=== PATIENT | male | born 1985 | race Caucasian/White ===

== ENCOUNTER 2017-02-20 16:22 | Emergency (ER) | payer BC, OTHER ==
[~2017-02-20] VITALS: Ht 175.3 cm; Wt 74.8 kg
[2017-02-20 16:23] VITALS: BP 158/100
[2017-02-20] MEDS ORDERED: KEFLEX500 MG PO (17:07)
[2017-02-20] MEDS ORDERED: IBUPROFEN 600600 M1 PO (17:07)
[2017-02-20] MEDS ORDERED: BACTRIM DS TAB1 EACH PO (17:07)
== END 2017-02-20 17:27 | disposition home or self-care (01) ==
LOC: ER 16:22
DX: L03.116 Cellulitis of left lower limb (principal); Z88.5 Allergy status to narcotic agent

== ENCOUNTER → 2017-04-29 | Outpatient (CLI) | payer BC, OTHER ==
[~2017-04-29] MED LIST: BACTRIM DS TAB1 EACH PO; IBUPROFEN 600600 M1 PO; KEFLEX500 MG PO; TRAMADOL 50 MG50 MG PO
== END ==
LOC: HYPER 04-15 10:04
DX: T81.4XXA Infection following a procedure, initial encounter (principal); L03.116 Cellulitis of left lower limb; M70.42 Prepatellar bursitis, left knee; Z87.891 Personal history of nicotine dependence; Z72.89 Other problems related to lifestyle; Y83.8 Other surgical procedures as the cause of abnormal reaction of the patient, or of later complication, without mention of misadventure at the time of the procedure; Y92.89 Other specified places as the place of occurrence of the external cause

== ENCOUNTER 2018-05-05 08:25 | Inpatient (IN) | payer BC, OTHER ==
[~2018-05-05] VITALS: Ht 175.3 cm; Wt 79.8 kg
--- NOTE | ~2018-05-05 | EKG ---
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 : 1985 Requested By: Mark Anthony Morales Order Number: [id number] MD: Antonino Vyas Measurements Intervals [place] Rate: 65 P: 15 AK: 156 QRS: 36 QRSD: 85 T: -1 QT: 365 QTc: 380 Interpretive Statements Sinus rhythm Anteroseptal infarct, old Borderline T abnormalities Compared to ECG 05/05/2018 08:25:36 T-wave abnormality now present Electronically Signed On 05-05-2018 16:58:29 CDT by Antonino Vyas [email or web address] <ELECTRONICALLY SIGNED> By: Antonino Vyas MD, [facility] 05/05/18 1658 1547 1547 Antonino Vyas MD, [facility] /EPI
--- NOTE | ~2018-05-05 | EKG ---
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 : 1985 Requested By: Melissa Manuel Order Number: [id number] MD: Antonino Vyas Measurements Intervals [place] Rate: 68 P: 54 LA: 164 QRS: 11 QRSD: 84 T: 33 QT: 366 QTc: 390 Interpretive Statements Sinus rhythm Atrial premature complex Poor septal R-wave progression Compared to ECG 05/05/2018 08:25:36 Atrial premature complex(es) now present Electronically Signed On 05-05-2018 16:42:51 CDT by Antonino Vyas [email or web address] <ELECTRONICALLY SIGNED> By: Antonino Vyas MD, [facility] 05/05/18 1642 2 2 Antonino Vyas MD, [facility] /EPI
--- NOTE | ~2018-05-05 | EKG ---
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 : 1985 Requested By: Melissa Manuel Order Number: [id number] MD: Antonino Vyas Measurements Intervals [place] Rate: 76 P: 13 SD: 152 QRS: 40 QRSD: 77 T: 11 QT: 335 QTc: 377 Interpretive Statements Sinus rhythm Poor septal R-wave progression Compared to ECG 04/27/2004 01:04:10 Poor septal R-wave progression is now present Electronically Signed On 05-05-2018 8:43:28 CDT by Antonino Vyas [email or web address] <ELECTRONICALLY SIGNED> By: Antonino Vyas MD, [facility] 05/05/18 0843 0825 08 Antonino Vyas MD, [facility] /EPI
--- NOTE | ~2018-05-05 | EKG ---
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 05/06/18 0804 4 4 Antonino Vyas MD, [facility] /EPI
--- NOTE | ~2018-05-05 | 2DMMODE ---
[facility] [address] [place] [address] 2 D/M-MODE ECHOCARDIOGRAM Name: KEVINZACHERY Jing Room #: 170-6 ADM IN .R.#: [id number] Admission: 05/05/18 Attend Phys: Leonel Sauceda Discharge: Date of : 81 Date of Service: 05/05/18 1200 Report #: [id number] THIS REPORT FOR: //name// APPROVED REPORT Study performed: 05/05/2018 11:14:28 EXAM: Comprehensive 2D, Doppler, and color-flow Echocardiogram Patient Location: ER Room #: 6 Status: routine BSA: 1.98 HR: 53 bpm BP: 125/78 mmHg Rhythm: NSR Other Information Study Quality: Good Indications Bradycardia Elevated Troponin Chest Pain Hypertension/HDD 2D Dimensions RVDd: 33.90 mm LVEF(%): 59.67 (>50%) IVSd: 9.89 (7-11mm) LVOT Diam: 20.45 (18-24mm) LVDd: 46.65 mm PWd: 10.34 (7-11mm) Ascending Ao: 24.50 (22-36mm) LVDs: 31.88 (25-40mm) Aortic Root: 29.60 mm IVC: 15.00 mm Hurst's LVEF: 59.67 % Volumes Left Atrial Volume (Systole) Single Plane 4CH: 25.75 mL Single Plane 2CH: 47.29 mL LA ESV Index: 20.00 mL/m2 Aortic Valve AoV Peak Adolfo.: 1.20 m/s AO Peak Gr.: 5.73 mmHg LVOT Max P.91 mmHg LVOT Max V: 1.11 m/s JAN Vmax: 3.04 cm2 [facility] [place] [address] 2 D/M-MODE ECHOCARDIOGRAM Name: BROWNZACHERY Jing Room #: 170-6 ADM IN ..#: [id number] Admission: 05/05/18 Attend Phys: Leonel Sauceda Discharge: Date of : 81 Date of Service: 05/05/18 1200 Report #: [id number] Mitral Valve E/A Ratio: 1.8 MV Decel. Time: 178.99 ms MV E Max Adolfo.: 0.80 m/s MV A Adolfo.: 0.45 m/s MV PHT: 51.91 ms IVRT: 110.73 ms Pulmonary Valve PV Peak Adolfo.: 1.11 m/s PV Peak Gr.: 4.94 mmHg Pulmonary Vein P Vein S: 0.38 m/s P Vein A: 0.24 m/s P Vein D: 0.32 m/s P Vein A Dur.: 106.1 msec P Vein S/D Ratio: 1.19 Tricuspid Valve TR Peak Adolfo.: 1.73 m/s TR Peak Gr.: 11.99 mmHg PA Pressure: 17.00 mmHg Left Ventricle The left ventricle is normal size. There is hypokinesis in the anterior wall. There is hypokinesis in the lateral wall. There is normal left ventricular wall thickness. Left ventricular systolic function is mildly decreased. LVEF is 45%. The left ventricular diastolic function is normal. Right Ventricle The right ventricle is normal size. The right ventricular systolic function is normal. Atria The left atrium size is normal. The right atrium size is normal. Aortic Valve The aortic valve is normal in structure. No aortic regurgitation is present. There is no aortic valvular stenosis. Mitral Valve The mitral valve is normal in structure. Trace mitral regurgitation. No evidence of mitral valve stenosis. Tricuspid Valve The tricuspid valve is normal in structure. There is trace tricuspid [facility] [address] [place] [address] 2 D/M-MODE ECHOCARDIOGRAM Name: ZACHERY BROWN Jing Room #: 170-6 ADM IN .R.#: [id number] Admission: 05/05/18 Attend Phys: Leonel Sauceda Discharge: Date of : 81 Date of Service: 05/05/18 [facility] Report #: [id number] regurgitation. There is no pulmonary hypertension. Pulmonic Valve The pulmonary valve is normal in structure. Trace pulmonic regurgitation. Great Vessels The aortic root is normal in size. IVC is normal in size and collapses >50% with inspiration. Pericardium There is no pericardial effusion. <Conclusion> The left ventricle is normal size. There is hypokinesis in the anterior wall. There is hypokinesis in the lateral wall. LVEF is 45%. The left ventricular diastolic function is normal. The left atrium size is normal. The aortic valve is normal in structure. Trace mitral regurgitation. There is trace tricuspid regurgitation. There is no pulmonary hypertension. The pulmonary valve is normal in structure. The aortic root is normal in size. There is no pericardial effusion. <ELECTRONICALLY SIGNED> By: Mark Anthony Morales MD, [facility]ACC 05/05/18 1200 1200 99 Mark Anthony Morales MD, FACC /INF
--- NOTE | ~2018-05-05 | CATHLAB ---
[facility] [address] [place] [address] INVASIVE PROCEDURE REPORT Name: ZACHERY BROWN Jing Room #: 212-P ADM IN M.R.#: [id number] Admission: 05/05/18 Attend Phys: Leonel Sauceda Discharge: Date of : 81 Date of Service: 05/05/182127 Report #: [id number] THIS REPORT FOR: //name// APPROVED REPORT Study performed: 05/05/2018 11:55:18 Patient Details Patient Status: ED Room #: The patient is a 32 year-old male Event Personnel Mark Anthony Morales Master Rigger, Byron Eastman RN, Santiago Rodriguez RN RN, Jade Sauer Sandifer, David Monitor Procedures Performed Left Heart Cath w/or w/o Coronaries [id number] [facility] Abdominal Aortography [address] w/wo Plasty Single LAD 412819 Indication Chest pain Procedure Narrative The Right Groin^ was infiltrated with 1% Lidocaine subcutaneous anesthesia. A PINNACLE 6FR Sheath #[id number] sheath was inserted into the RFA^. Coronary angiography was performed using coronary diagnostic catheters. The right coronary system was accessed and visualized with a 6FR 3DRC #[id number] catheter. The left coronary system was accessed and visualized with a JL4 catheter. The left ventricle was accessed and visualized with a PIGTAIL catheter. Left ventriculogram was performed in 30 degree projection. An aortogram of the abdominal aorta was performed. Closure device was deployed with a 6 Fr MYNXGRIP 6/7F #[id number]. The patient tolerated the procedure well and there were no complications associated with the procedure. There was no hematoma. Intraoperative Conscious Sedation Sedation start time: 12.19 Case end Time: 13.14 Fentanyl 50 mcg Versed 2 mg Fluoro Time: 9.17 minutes Dose: DAP 8070 cGycm2 1064 mGy Contrast Type and Amount: Omnipaque 250 ml [facility] [place] [address] INVASIVE PROCEDURE REPORT Name: ZACHERY BROWN Jing Room #: 212-P [facility] IN M.R.#: [id number] Admission: 05/05/18 Attend Phys: Leonel Sauceda Discharge: Date of : 81 Date of Service: 05/05/182127 Report #: [id number] Hemodynamics The aortic pressure is 130/76 mmHg with a mean of 94 mmHg. The left ventricular pressure is 135/18 mmHg with a mean of mmHg. The left ventricular end diastolic pressure is 30 mmHg. PCI Technique Lesion Percutaneous coronary intervention was performed on the proximal left anterior descending artery segment. A LAUNCHER 6FR EBU 3.5 #[id number] Guide Catheter was used to engage the ostium. A Luge Wire .014 x 182CM #[id number] Interventional Guidewire was used to cross the lesion. BALLOON DILATION A Balloon catheter Sprinter OTW 2.5 x 15 #[id number] was inserted and inflated up to 8atm for 21seconds. Additional Inflation: 12.00atm for 17seconds. STENT DEPLOYMENT A drug-eluting stent RESOLUTE OTW 3.0 X 18 #[id number] was inserted and inflated up to 15.00atm for 37seconds. Conclusion #1 successful PTCA stent drug-eluting to the proximal LAD eccentric long 90% lesion with placement of a 30 by 18 resolute drug-eluting stent to 3.3 mm in size 30-40% irregularity distal to the stent well-preserved vessel to the apex COLEEN-3 kassi #2 left main short large free of disease giving rise to LAD circumflex #3 circumflex OM is dominant vessel mildly diseased #4 small nondominant right mildly disease #5 normal left ventricular size with anterior apical lateral wall hypokinesis EF 45% (expect this to improved appears stunned) #6 abdominal aorta is intact with mild irregularities in bilateral renal arteries widely patent Recommendations and plan: continue aggressive risk factor modification. Dual antiplatelet therapy to CCU in stable condition. <ELECTRONICALLY SIGNED> By: Mark Anthony Morales MD, FACC 05/05/182127 27 27 Mark Anthony Morales MD, FACC /INF
[~2018-05-05 08:25] MED LIST changes: +ULTRAM 50MG TAB50 MG PO
[2018-05-05 08:26] VITALS: BP 196/11
[2018-05-05 08:50] LABS: HEMATOCRIT 49.3 % (42.0-52.0); HEMOGLOBIN 17.6 gm/dL (14.0-18.0); MCH 31.6 pg (26.0-34.0); MCHC 35.7 g/dL (28.0-37.0); MCV 88.7 fL (80.0-100.0); RBC 5.56 mil/uL (4.50-6.00); RDW 12.7 % (10.5-14.5); WBC 14.4 thou/uL (4.0-11.0)
[2018-05-05 08:54] LABS: CALCIUM 9.6 mg/dL (8.5-10.1); CREATININE 0.9 mg/dL (0.7-1.3); POTASSIUM 4.3 mmol/L (3.5-5.1)
[2018-05-05 08:59] LABS: ALBUMIN 4.4 g/dL (3.4-5.0); TOTAL BILIRUBIN 1.3 mg/dL (<0.1-1.0); TOTAL PROTEIN 7.6 g/dL (6.4-8.2)
[2018-05-05 10:19] LABS: CHOLESTEROL 181 mg/dL (<200); HDL CHOLESTEROL 39 mg/dL (>40); LDL CHOLESTEROL 118 mg/dL (<100); TC:HDL 4.6 Ratio (Not establshd); TRIGLYCERIDE 123 mg/dL (<150); VLDL 25 mg/dL (<40)
[2018-05-05 10:39] LABS: AMP/METHAMP Negative (Negative); BARBITURATES Negative (Negative); BENZODIAZEPINES Negative (Negative); COCAINE Negative (Negative); METHADONE Negative (Negative); OPIATES POSITIVE (Negative); PCP Negative (Negative)
[2018-05-05 12:12] VITALS: BP 132/80
[2018-05-05 13:35] VITALS: BP 143/92
[2018-05-05 19:20] VITALS: BP 147/89
[2018-05-05 21:00] VITALS: BP 147/89
[2018-05-05 23:44] VITALS: BP 141/73
[2018-05-06 04:05] VITALS: BP 131/82
[2018-05-06 05:23] LABS: MCH 31.7 pg (26.0-34.0); MCHC 35.5 g/dL (28.0-37.0); MCV 89.2 fL (80.0-100.0); RBC 5.04 mil/uL (4.50-6.00); RDW 12.6 % (10.5-14.5); WBC 22.1 thou/uL (4.0-11.0)
[2018-05-06 05:37] LABS: CALCIUM 8.8 mg/dL (8.5-10.1); CREATININE 0.8 mg/dL (0.7-1.3); POTASSIUM 3.8 mmol/L (3.5-5.1)
[2018-05-06 05:40] LABS: TROPONIN-I 14.43 ng/mL (<0.06)
[2018-05-06 08:04] VITALS: BP 147/95
[2018-05-06] MEDS ORDERED: METOPROLOL SUCC50 MG PO (09:11)
[2018-05-06] MEDS ORDERED: COZAAR100 MG PO (09:11)
[2018-05-06] MEDS ORDERED: LIPITOR40 MG PO (09:11)
[2018-05-06] MEDS ORDERED: EFFIENT10 MG PO (09:11)
[2018-05-06] MEDS ORDERED: ASPIRIN325 PO (09:15)
[2018-05-06 11:09] VITALS: BP 123/79
[2018-05-06 16:02] VITALS: BP 123/71
[2018-05-06 19:06] VITALS: BP 123/71
== END 2018-05-06 19:20 | disposition home or self-care (01) | DRG 247 ==
LOC: ER 08:25 → EROBS 09:51 → 2N 09:51
PROVIDERS: Hospitalist; Internal Medicine Cardiovascular Disease; Student in an Organized Health Care Education/Training Program
PROC: 4A023N7 Measurement of Cardiac Sampling and Pressure, Left Heart, Percutaneous Approach (ICD-10-PCS; principal; 2018-05-05)
PROC: B2151ZZ Fluoroscopy of Left Heart using Low Osmolar Contrast (ICD-10-PCS; principal; 2018-05-05)
PROC: 027034Z Dilation of Coronary Artery, One Artery with Drug-eluting Intraluminal Device, Percutaneous Approach (ICD-10-PCS; principal; 2018-05-05)
PROC: B4101ZZ Fluoroscopy of Abdominal Aorta using Low Osmolar Contrast (ICD-10-PCS; principal; 2018-05-05)
PROC: B2111ZZ Fluoroscopy of Multiple Coronary Arteries using Low Osmolar Contrast (ICD-10-PCS; principal; 2018-05-05)
DX: I21.4 Non-ST elevation (NSTEMI) myocardial infarction (principal); I24.9 Acute ischemic heart disease, unspecified; I10 Essential (primary) hypertension; D72.829 Elevated white blood cell count, unspecified; F17.220 Nicotine dependence, chewing tobacco, uncomplicated; E78.5 Hyperlipidemia, unspecified; Z79.899 Other long term (current) drug therapy; Z79.82 Long term (current) use of aspirin; Z88.6 Allergy status to analgesic agent; Z88.2 Allergy status to sulfonamides; Z88.8 Allergy status to other drugs, medicaments and biological substances; Z82.49 Family history of ischemic heart disease and other diseases of the circulatory system
CPT/HCPCS: 10081

== ENCOUNTER → 2020-03-28 | Outpatient (CLI) | payer OTHER ==
[~2020-03-28] MED LIST changes: +ASPIRIN325 PO; +COZAAR100 MG PO; +EFFIENT10 MG PO; +LIPITOR40 MG PO; +METOPROLOL SUCC50 MG PO
== END ==
LOC: SJCVCIMAG 13:39
PROVIDERS: ATTEND Internal Medicine Cardiovascular Disease
DX: I07.1 Rheumatic tricuspid insufficiency (principal); R55 Syncope and collapse; I25.10 Atherosclerotic heart disease of native coronary artery without angina pectoris; I25.2 Old myocardial infarction

== ENCOUNTER 2021-02-12 17:48 | Emergency (ER) | payer OTHER ==
[~2021-02-12] VITALS: Ht 175.3 cm; Wt 81.7 kg
[2021-02-12] MEDS ORDERED: ADULT LOW DOSE81 MG PO (18:36)
[2021-02-12] MEDS ORDERED: LOSARTAN POTASS50 MG PO (18:36)
[2021-02-12] MEDS ORDERED: EZETIMIBE10 MG PO (18:37)
[2021-02-12 19:05] LABS: ABSOLUTE NEUTROPHILS 4.4 thou/uL (1.4-8.2); BASOPHILS 0.8 % (0.0-2.0); HEMATOCRIT 44.2 % (42.0-52.0); HEMOGLOBIN 15.7 gm/dL (14.0-18.0); LYMPHOCYTES 31.1 % (24.0-44.0); MCH 31.6 pg (26.0-34.0); MCHC 35.5 g/dL (28.0-37.0); MCV 88.9 fL (80.0-100.0); MONOCYTES 7.6 % (1.0-8.0); PLATELET COUNT 203 thou/uL (150-400); POLYS 56.5 % (36.0-66.0); RBC 4.97 mil/uL (4.50-6.00); RDW 12.3 % (10.5-14.5); WBC 7.7 thou/uL (4.0-11.0)
[2021-02-12 19:10] LABS: ANION GAP 13 mmol/L (7-16); BUN 13 mg/dL (7-18); CALCIUM 9.2 mg/dL (8.5-10.1); CHLORIDE 104 mmol/L (98-107); CO2 23 mmol/L (21-32); CREATININE 0.9 mg/dL (0.7-1.3); GLUCOSE 120 mg/dL (74-106); POTASSIUM 3.6 mmol/L (3.5-5.1); SODIUM 140 mmol/L (136-145)
[2021-02-12 19:20] LABS: ALBUMIN 4.1 g/dL (3.4-5.0); SGOT 79 U/L (15-37); SGPT 142 U/L (16-63); TOTAL BILIRUBIN 1.1 mg/dL (0.2-1.0); TOTAL PROTEIN 7.5 g/dL (6.4-8.2); TROPONIN-I <0.06 ng/mL (<0.06)
[2021-02-12 21:09] VITALS: BP 129/82
--- NOTE | 2021-02-13 07:33 | EKG ---
[place] [address] [facility] [place] [address] ELECTROCARDIOGRAM REPORT Name: ZACHERY BROWN Room #: 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
--- NOTE | 2021-02-13 07:33 | EKG ---
[address] [place] [address] ELECTROCARDIOGRAM REPORT Name: ZACHERY BROWN [id number] Admission: 02/12/21 Attend Phys: Discharge: 02/12/21 Date of : 81 Report #: [id number] [facility] ED Test Date: 2021-02-12 Test Time: 17:55:38 Pat Name: ZACHERY BROWN Department: Room: Gender: M Cpa Tax: MPARVamshi : 1985 Requested By: Roddy Gibson Order Number: [id number] MD: Lopez Samayoa Measurements Intervals [place] Rate: 92 P: 72 AR: 160 QRS: 5 QRSD: 91 T: 24 QT: 333 QTc: 412 Interpretive Statements Sinus rhythm Consider left ventricular hypertrophy Compared to ECG 05/06/2018 07:25:04 Poor R-wave progression no longer present Electronically Signed On 02-13-2021 7:32:59 CDT by Lopez Samayoa [email or web address] <ELECTRONICALLY SIGNED> By: Lopez Samayoa MD, [facility] 02/13/21 0732 1755 1755 Lopez Samayoa MD, FACC /EPI
== END 2021-02-12 21:10 | disposition home or self-care (01) ==
LOC: ER 17:48
PROVIDERS: Emergency Medicine
DX: R07.89 Other chest pain (principal); R06.02 Shortness of breath; Z95.5 Presence of coronary angioplasty implant and graft; Z98.890 Other specified postprocedural states; Z79.899 Other long term (current) drug therapy; Z79.82 Long term (current) use of aspirin; Z88.6 Allergy status to analgesic agent; Z88.2 Allergy status to sulfonamides; Z87.891 Personal history of nicotine dependence

== ENCOUNTER → 2021-02-14 | Outpatient (CLI) | payer OTHER ==
[~2021-02-14] MED LIST changes: +ADULT LOW DOSE81 MG PO; +EZETIMIBE10 MG PO; +LOSARTAN POTASS50 MG PO
== END ==
LOC: SJCVCIMAG 14:35
PROVIDERS: ATTEND Internal Medicine Cardiovascular Disease
DX: I25.10 Atherosclerotic heart disease of native coronary artery without angina pectoris (principal); I10 Essential (primary) hypertension; R06.00 Dyspnea, unspecified; R53.83 Other fatigue; Z95.5 Presence of coronary angioplasty implant and graft